=== PATIENT | male | born 1990 | race Caucasian/White ===

== ENCOUNTER 2019-12-19 08:51 | Emergency (ER) | payer OTHER, SELFPAY ==
[2019-12-19 09:36] VITALS: BP 113/64; PULSE 69; RESP 16; O2SAT 98; BMI 28.8
--- NOTE | 2019-12-19 09:50 | ED.GENADULT ---
HPI - General Adult General Chief complaint: Back Pain/Injury Stated complaint: back pain,inj work related Time Seen by Provider: 12/19/19 09:50 History of Present Illness HPI narrative: SO PATIENT HURT HIS BACK LIFTING AT WORK 1 WEEK AGO WAS SEEN HERE AND RETURN TO WORK TODAY AND EXPERIENCED SHARP PAIN IN HIS RIGHT LOW BACK THAT RADIATES TO HIS RIGHT CALF WITH NO NUMBNESS NO WEAKNESS NO PARESTHESIAS THIS IS WORK RELATED Related Data Previous Rx's Medication Instructions Recorded prednisone 40 mg PO DAILY #10 tab 12/19/19 Allergies Allergy/AdvReac Type Severity Reaction Status Date / Time No Known Allergies Allergy Unverified 12/05/19 19:36 [No Known Allergies*] Review of Systems Review of Systems: THERE IS NO NUMBNESS NO WEAKNESS NO PARESTHESIAS NO INCONTINENCE NO CHANGE OF BOWEL OR BLADDER PMFSH Past Medical History PMFSH Narrative: SO NO RELEVANT FAMILY OR SOCIAL HISTORY Social History Social History Advance Directives: No Advance Directives Information Provided: No Physical Exam Vital Signs and I&O and Narrative: Vital Signs and I&O: Vital Signs Pulse 69 12/19/19 09:36 Resp 16 12/19/19 09:36 BP 113/64 12/19/19 09:36 Pulse Ox 98 12/19/19 09:36 Intake & Output 12/18/19 12/19/19 12/19/19 18:59 06:59 18:59 Weight 86.183 kg Body Mass Index 28.8 Const: General: cooperative and no acute distress Neck: Other: THE NECK IS SUPPLE THERE IS NO TECH NECK TENDERNESS AND THERE IS A FULL RANGE OF MOTION Chest: Other: NO RESPIRATORY DISTRESS, CHEST NONTENDER AND LUNG SOUNDS ARE GI: Other: NO ABDOMINAL TENDERNESS, NO CVA TENDER Back/Spine/Pelvis: Other: THERE IS TENDERNESS TO THE RIGHT LOWER BACK, SKIN IS INTACT THERE IS NO REDNESS THERE IS NO FOCAL BONY TENDERNESS THERE IS NO CVA TENDERNESS Skin: Other: NO RASH, SKIN INTACT Neuro: Other: NO FOCAL WEAKNESS, SENSATION IS INTACT MOTORS INTACT GAIT IS NORMAL PATIENT CAN WALK ON TOES AND WALK ON HEELS Extrem: Other: EXTREMITIES ARE NORMAL WITH FULL RANGE OF MOTION IN ALL DAY Course Course Hospital Course: PATIENT REMAINS COMFORTABLE THROUGHOUT VISIT Discharge Plan Discharge Clinical Impression: Sciatica Patient Disposition: Home, Self-Care Additional Instructions: FOLLOW WITH [facility] IN 1-2 DAYS FOR WORK RELATED INJURY RETURN ANY CONCERNS Prescriptions: New prednisone 20 mg tablet 40 mg PO DAILY Qty: 10 RF: 0 Referrals: [facility] [Outside] - 2 days Stand Alone Forms: Work/School Release
== END 2019-12-19 10:45 | disposition home or self-care (01) ==
PROVIDERS: Emergency Provider Emergency Medicine
DX: Z04.2 Encounter for examination and observation following work accident (principal); M54.41 Lumbago with sciatica, right side
CPT/HCPCS: 99283; 99284

== ENCOUNTER → 2019-12-23 11:57 | Outpatient (BNVA) | payer OTHER, SELFPAY | PROVIDERS: Visit Provider Physician Assistant Medical | DX: Z76.89 Persons encountering health services in other specified circumstances (principal) ==

== ENCOUNTER → 2019-12-27 10:25 | Outpatient (BNVA) | payer OTHER, SELFPAY | PROVIDERS: Visit Provider Physician Assistant Medical | DX: S29.012D Strain of muscle and tendon of back wall of thorax, subsequent encounter (principal); S39.012D Strain of muscle, fascia and tendon of lower back, subsequent encounter; X58.XXXD Exposure to other specified factors, subsequent encounter ==

== ENCOUNTER → 2019-12-31 08:04 | Outpatient (BNVA) | payer OTHER, SELFPAY | PROVIDERS: Visit Provider Physician Assistant Medical | DX: S39.012A Strain of muscle, fascia and tendon of lower back, initial encounter (principal); S29.012A Strain of muscle and tendon of back wall of thorax, initial encounter; X58.XXXA Exposure to other specified factors, initial encounter | CPT/HCPCS: 72072; 72100; 99214 ==

== ENCOUNTER → 2020-01-07 08:01 | Outpatient (BNVA) | payer OTHER, SELFPAY | PROVIDERS: Visit Provider Physician Assistant Medical | DX: Z13.89 Encounter for screening for other disorder (principal) | CPT/HCPCS: 99213 ==

== ENCOUNTER → 2020-01-14 07:39 | Outpatient (BNVA) | payer OTHER, SELFPAY | PROVIDERS: Visit Provider Physician Assistant Medical | DX: S29.012A Strain of muscle and tendon of back wall of thorax, initial encounter (principal); S39.012A Strain of muscle, fascia and tendon of lower back, initial encounter; X50.0XXA Overexertion from strenuous movement or load, initial encounter; M47.814 Spondylosis without myelopathy or radiculopathy, thoracic region; R29.890 Loss of height | CPT/HCPCS: 99213 ==

== ENCOUNTER 2020-01-17 08:00 | Outpatient (RCR) | payer OTHER, SELFPAY ==
--- NOTE | 2020-02-06 14:34 | MHC.PT.DC ---
[facility] [place] Office [place] [facility] [place] Office [address] Omar Armstrong [address] [phone] F: [phone] F: [phone] F: [phone] F: [phone] Physical Therapy Discharge Report Diagnosis: R thoracic strain, lumbar strain Date of Surgery: Date of Evaluation: 12/27/19 Date of Discharge: 02/06/20 Treatments to Date: 4 Cancellations to Date: 0 No Shows to Date: 2 Discharge Status: Patient Elected to Stop Discharge Summary: Pt ATTENDED ONLY 4 VISITS OF PT, STATED AT LAST VISIT HE FELT NO CHANGE AND WAS TO RETURN TO [facility] FOR FOLLOW UP. HE HAS NOT RETURNED TO OUR OFFICE FOR SEVERAL WEEKS AND WE WILL D/C FROM OUR SERVICES AT THIS TIME Electronically signed by: WILLY CABRERA, PT, DPT Please sign and return to therapist. Thank you for your referral.
== END 2020-02-28 10:53 | disposition other institution (70) ==
LOC: HO.PT 08:00
PROVIDERS: Visit Provider Physician Assistant Medical
DX: S29.012D Strain of muscle and tendon of back wall of thorax, subsequent encounter (principal); S39.012D Strain of muscle, fascia and tendon of lower back, subsequent encounter; M62.830 Muscle spasm of back; X58.XXXD Exposure to other specified factors, subsequent encounter; Y99.0 Civilian activity done for income or pay
CPT/HCPCS: 97014; 97035; 97110; 97140; 97162; 97535; 99213

== ENCOUNTER 2020-01-17 17:58 | Outpatient (REF) | payer OTHER, SELFPAY ==
--- NOTE | 2020-01-17 | MR_ITS ---
EXAMINATION: MR THORACIC SPINE WITHOUT CONTRAST CLINICAL INFORMATION: Thoracic sprain. T7 vertebral body height loss. COMPARISON: Thoracic spine radiographs from 12/31/2019. TECHNIQUE: MRI of the thoracic spine was obtained using routine sequences without contrast. FINDINGS: Normal anatomic alignment. Moderate degenerative disc disease at T6-T7, T8-T9, T9-T10, and T10-T11 with mild endplate deformities. No suspicious marrow edema. The vertebral body heights are otherwise well-maintained. No significant abnormalities of the thoracic spinal cord. The conus medullaris terminates at the level of L1. No significant abnormalities of the paraspinal musculature. Limited evaluation of the intrathoracic structures without significant abnormalities. The descending thoracic aorta is of normal contour and caliber. AXIAL SPINAL LEVELS: Minimal posterior disc herniations at T2-T3, T6-T7, T8-T9, T9-T10, and T10-T11. Mild degenerative facet arthropathy of the lower thoracic spine. There is no spinal canal or neural foraminal stenoses. MR/MR thoracic spine wo con IMPRESSION: No demonstrated acute abnormalities of the thoracic spine. No suspicious marrow edema. Mild multilevel degenerative spinal arthropathy of the thoracic spine with multilevel minimal endplate deformities.
== END 2020-01-17 17:59 | disposition home or self-care (01) ==
LOC: HO.MRI 17:58
PROVIDERS: Visit Provider Internal Medicine
DX: S29.012A Strain of muscle and tendon of back wall of thorax, initial encounter (principal); R29.890 Loss of height
CPT/HCPCS: 72146

== ENCOUNTER → 2020-01-24 08:06 | Outpatient (BNVA) | payer OTHER, SELFPAY | PROVIDERS: Visit Provider Physician Assistant Medical | DX: S29.012D Strain of muscle and tendon of back wall of thorax, subsequent encounter (principal); S39.012D Strain of muscle, fascia and tendon of lower back, subsequent encounter; X58.XXXD Exposure to other specified factors, subsequent encounter; M51.24 Other intervertebral disc displacement, thoracic region | CPT/HCPCS: 99213 ==

== ENCOUNTER 2021-09-30 10:17 | Outpatient (REF) | payer OTHER, SELFPAY ==
[2021-09-30 11:19] LABS: COVID-19 Test Negative (Negative)
== END 2021-09-30 10:18 | disposition home or self-care (01) ==
LOC: HO.LAB 10:17
PROVIDERS: PCP Family Medicine; Visit Provider Internal Medicine
DX: Z20.822 Contact with and (suspected) exposure to COVID-19 (principal)
CPT/HCPCS: 87635; C9803

== ENCOUNTER 2022-12-04 11:36 | Emergency (ER) | payer OTHER, SELFPAY ==
--- NOTE | ~2022-12-04 | XR_ITS ---
EXAMINATION: XR LUMBOSACRAL SPINE CLINICAL INFORMATION: Low back pain COMPARISON: 12/31/2019 TECHNIQUE: Three views of the lumbosacral spine. FINDINGS: There are 5 lumbar type nonrib-bearing vertebra. Bones are normal anatomic alignment with no acute fracture or spondylolisthesis. Vertebral body heights and disc heights are preserved. Paravertebral soft tissues and bowel gas pattern unremarkable. No acute bony abnormalities seen in the visualized pelvis. XR/XR lumbar spine 2-3V IMPRESSION: No acute bony abnormality.
[2022-12-04 12:35] VITALS: BP 141/82; PULSE 81; RESP 16; TEMP 36.6; O2SAT 98; BMI 34.2
--- NOTE | 2022-12-04 12:37 | ED.GENADULT ---
[facility] - General Adult General Chief complaint: Back Pain/Injury Stated complaint: lower back pain Time Seen by Provider: 12/04/22 14:09 Source: patient and RN notes reviewed Mode of arrival: ambulatory Limitations: no limitations History of Present Illness HPI narrative: This is a 32-year-old male, with no significant past medical history, presenting to the emergency department with complaints of low back pain x3 weeks, worsening since yesterday. Patient reports that 3 weeks ago he was involved in a work related injury where he was lifting a tire in suddenly felt a shocking pain up and down his back. He was seen by a telemedicine physician and was given conservative measures to treat his pain. He states that his pain was improving until yesterday when his back pain gradually started to get worse without any new trauma or injury. He states that the pain does not radiate from his back. Patient denies any chest pain, shortness of breath. He states that his back pain worsens with movement, especially going from seated to standing positions. Denies any saddle anesthesia. Denies any urinary symptoms. No urinary or bowel incontinence or retention. Denies fevers or chills. No numbness tingling or weakness in lower extremities. No other complaints or concerns at this time. MD complaint: Low back pain Onset (ago): week(s) Location: back Radiation: non-radiation Quality: aching Pain Consistency: constant Relieving factors: none Exacerbating factors: none Associated symptoms: denies other symptoms Treatments prior to arrival: none Related Data Previous Rx's Medication Instructions Recorded prednisone 20 mg tablet 40 mg (2 x 20 mg) PO DAILY #10 tabs 12/19/19 cyclobenzaprine 10 mg tablet 10 mg PO TID PRN muscle spasm #14 12/04/22 tabs ibuprofen 800 mg tablet 800 mg PO Q8H PRN pain #30 tabs 12/04/22 lidocaine 5 % topical patch 1 patch topical DAILY #30 ea 12/04/22 (Lidoderm) Allergies Allergy/AdvReac Type Severity Reaction Status Date / Time No Known Allergies Allergy Verified 12/04/22 12:35 [No Known Allergies*] Review of Systems Review of Systems: Yes all other systems are reviewed and are negative Constitutional: Constitutional: Reports as per [facility] Social History Social History Alcohol intake: never Advance Directives: No Advance Directives Information Provided: Yes Physical Exam ED Vital Signs: Vital Signs - 24 hr 12/04/22 12:35 Temperature 98 F Pulse Rate 81 Respiratory Rate 16 Blood Pressure 141/82 H Pulse Oximetry 98 Oxygen Delivery Method Room Air BMI result Body Mass Index 34.2 Const General: cooperative, comfortable and no acute distress Orientation/consciousness: patient oriented x3 Limitations: no limitations HENMT Head: Yes normal to inspection, Yes normocephalic and Yes atraumatic Ears: hearing grossly normal bilaterally General nose exam: Normal external nose present Face and sinus: Yes normal facial exam Mouth: Normal oral and palatal mucosa present, oropharynx normal and moist mucous membranes Throat: Yes posterior oropharynx normal Eyes General: appearance normal, both eyes and all related structures Eyelids: Yes eyelids normal Conjunctivae: conjunctivae normal Sclerae: sclerae normal Pupils: Equal, round and reactive pupils present EOM: EOMs intact bilaterally Neck Neck: Yes normal visual inspection, Yes full ROM and Yes no lymphadenopathy Lymphatic: no lymphadenopathy noted Chest Chest palpation & inspection: normal inspection of the chest Resp Effort & Inspection: normal respiratory effort and able to speak in complete sentences Auscultation: clear to auscultation bilaterally, no crackles, no rales, no rhonchi and no wheezes Cardio Rate: regular rate Rhythm: regular rhythm Heart sounds: S1 normal heart sound present and S2 normal heart sound present GI Inspection: Yes normal to inspection Back/Spine/Pelvis Other: Tenderness palpation along the left lumbar and right lumbar paraspinous muscles. No midline spine tenderness. Pain worsening with palpation and with movement. Patellar reflexes are 2+ bilaterally. Distal sensation circulation intact Skin General skin exam: no rashes or lesions noted Trauma: no lacerations or abrasions Wounds: no wounds Neuro General: patient oriented x3 and moves all extremities Cranial nerves: Yes Equal, round and reactive pupils present Extrem General: Yes normal to inspection Right upper extremity: normal to inspection Left upper extremity: normal to inspection Right lower extremity: normal to inspection Left lower extremity: normal to inspection Course Course Course Narrative: RME: 32 Yold male presents to the ED for lumbar back pain after heavy lifting. Patient state no abdominal pain or complaints. Xray ordered Medical Decision Making Medical Decision Making MDM Narrative: 32-year-old male presenting to the emergency department with complaints of low back pain x3 weeks worsening since yesterday. On arrival, mildly hypertensive at 141/82, otherwise all vital signs within normal limits. Patient has tenderness palpation along the lumbar musculature consistent with muscle spasms, a lumbar spine x-ray was obtained without any bony abnormalities. Differential diagnoses includes lumbago versus musculoskeletal spasm / strain versus sciatica.No back pain red flags on history or physical. Presentation not consistent with malignancy (lack of history of malignancy, lack of B symptoms), fracture (no trauma, no bony tenderness to palpation), cauda equina syndrome (no bowel or urinary incontinence/retention, no saddle anesthesia, no distal weakness), pyelonephritis (afebrile, no CVAT, no urinary symptoms). X-rays were obtained without any acute findings. Discharged on muscle relaxants, lidocaine patches and ibuprofen. Given return precautions. Patient understands and agrees with plan. Patient stable for discharge. Differential Diagnosis Differential Diagnoses: The differential diagnosis associated with the presentation includes See above Radiology Impression Discussion of test interpretation with radiology: I have reviewed the radiologist's reading. Radiologist Impression: EXAMINATION: XR LUMBOSACRAL SPINE CLINICAL INFORMATION: Low back pain COMPARISON: 12/31/2019 TECHNIQUE: Three views of the lumbosacral spine. FINDINGS: There are 5 lumbar type nonrib-bearing vertebra. Bones are normal anatomic alignment with no acute fracture or spondylolisthesis. Vertebral body heights and disc heights are preserved. Paravertebral soft tissues and bowel gas pattern unremarkable. No acute bony abnormalities seen in the visualized pelvis. XR/XR lumbar spine 2-3V IMPRESSION: No acute bony abnormality. Dictated By: Lorenzo Gallegos MD Discharge Plan Discharge Clinical Impression: Strain of lumbar region, Lumbar paraspinal muscle spasm Patient Disposition: Home, Self-Care Instructions: Low Back Strain (ED), Muscle Spasm (ED), Back Pain (ED), Lower Back Exercises (ED), Core Strengthening Exercises (ED) Additional Instructions: Your x-rays did not show any bony abnormalities today. Your symptoms are likely due to a muscle spasm. Please take prescribed ibuprofen and Tylenol as directed as needed for pain. I am also prescribing Flexeril, this is a muscle relaxant, please be advised that this can cause drowsiness, do not drink alcohol or drive while taking this medication. If any new or worsening symptoms occur including but not limited to chest pain, shortness of breath, abdominal pain, urinary symptoms, numbness or tingling or weakness in her lower extremities, please return for re-evaluation. Follow-up with physical therapy as previously advised. Prescriptions: New cyclobenzaprine 10 mg tablet 10 mg PO TID PRN (Reason: muscle spasm) Qty: 14 0RF ibuprofen 800 mg tablet 800 mg PO Q8H PRN (Reason: pain) Qty: 30 0RF lidocaine [Lidoderm] 5 % adhesive patch,medicated 1 patch topical DAILY Qty: 30 0RF Rx Instructions: leave on most painful area for up to 12 hrs No Action prednisone 20 mg tablet 40 mg PO DAILY Qty: 10 0RF Rx Instructions: prednisone 40 mg once a day for 5 days Stand Alone Forms: Work/School Release Interventions: ED Discharge Assessment Last Done: 12/04/22 16:06 Discharge Date/Time: 12/04/22 16:07
== END 2022-12-04 16:07 | disposition home or self-care (01) ==
PROVIDERS: Emergency Provider Student in an Organized Health Care Education/Training Program
DX: S39.012A Strain of muscle, fascia and tendon of lower back, initial encounter (principal); M62.830 Muscle spasm of back; X50.3XXA Overexertion from repetitive movements, initial encounter; X50.9XXA Other and unspecified overexertion or strenuous movements or postures, initial encounter; Y93.9 Activity, unspecified; Y92.9 Unspecified place or not applicable; Y99.9 Unspecified external cause status
CPT/HCPCS: 72100; 99283

== ENCOUNTER 2023-01-21 08:18 | Emergency (ER) | payer OTHER, SELFPAY ==
[2023-01-21] VITALS (8 sets, daily range): BP systolic 101–124; BP diastolic 58–71; PULSE 61–78; RESP 15–18; TEMP 36.6–37; O2SAT 96–97; BMI 34.7
--- NOTE | 2023-01-21 08:59 | ECG_ITS ---
Test Reason : DIZZINESS Blood Pressure : / mmHG Vent. Rate : 070 BPM Atrial Rate : 070 BPM P-R Int : 148 ms QRS Dur : 096 ms QT Int : 384 ms P-R-T Axes : 024 -18 010 degrees QTc Int : 414 ms Normal sinus rhythm RSR' or QR pattern in V1 suggests right ventricular conduction delay Otherwise normal ECG No previous ECGs available Referred By: Nataly Mae Electronically Signed By:CHRISTOPHER GONZALEZ MD
[2023-01-21 09:44] LABS: MANUAL DIFF FLAG NO
[2023-01-21] MEDS: 0.9 % Sodium Chloride 1,000 ML 999 ML IV (09:59)
[2023-01-21 10:07] LABS: Basophils Percent Auto 0.2 % (0-2); Eosinophils Absolute Auto 0.2 X10*3/uL (0.0-0.4); Eosinophils Percent Auto 2.6 % (0-4); Hematocrit 41.5 % (42.0-52.0); Hemoglobin 14.3 g/dl (14.0-18.0); Imm Gran Abs Auto 0.02 X10*3/uL (0.00-0.03); Imm Gran Pct Auto 0.3 % (0.0-0.4); Lymphocytes Absolute Auto 1.5 X10*3/uL (1.2-4.9); Mean Corpuscular HGB Conc 34.5 g/dl (31.0-36.0); Mean Corpuscular Hemoglobin 31.2 pg (27.0-33.0); Mean Corpuscular Volume 90.6 fL (80.0-98.0); Mean Platelet Volume 9.1 fL (9.4-12.4); Monocytes Absolute Auto 0.6 X10*3/uL (0.1-1.2); Monocytes Percent Auto 9.1 % (2-11); Neutrophils Absolute Auto 3.8 x10*3/uL (2.0-8.3); Neutrophils Percent Auto 62.8 % (45-73); Platelet Count 253 X10*3/uL (160-400); Red Blood Count 4.58 X10*6/uL (4.60-5.80); Red Cell Distribution Width 12.2 % (11.0-16.0)
[2023-01-21 10:08] LABS: Alanine Aminotransferase 79 U/L (0-40); Albumin Level 4.3 g/dL (3.5-5.0); Alkaline Phosphatase 35 U/L (39-117); Anion Gap 11 (12-20); Aspartate Amino Transferase 36 U/L (5-37); Bilirubin Total 0.9 mg/dL (0.0-1.0); Blood Urea Nitrogen 13 mg/dL (9-16); Calcium 9.3 mg/dL (8.4-10.2); Carbon Dioxide 24 mmol/L (22-29); Chloride 106 mmol/L (96-108); Estimated Glomerular Filt Rate > 60; Glucose Random 106 mg/dL (60-115); Lipase 11 U/L (8-78); Potassium 3.8 mmol/L (3.3-5.1); Sodium 137 mmol/L (135-145); Total Protein 7.3 g/dL (6.5-8.0)
[2023-01-21 10:11] LABS: COVID-19 Test Negative (Negative); IDNOW Serial# 08D9AD1C
[2023-01-21 10:12] LABS: IDNOW Serial# BCCEAD1C; Influenza A Negative (Negative); Influenza B2 Negative (Negative)
[2023-01-21] MEDS: ondansetron HCL 4 MG/2 ML VIAL IVPUSH (10:16)
--- NOTE | 2023-01-21 10:17 | ED_ITS ---
HPI - General Adult General Chief complaint: Nausea/Vomiting/Diarrhea Stated complaint: dizzy spells 1xweek Time Seen by Provider: 01/21/23 09:00 Source: patient Mode of arrival: ambulatory Limitations: no limitations History of Present Illness HPI narrative: patient is a 32-year-old male who presents to the emergency department for evaluation of dizziness. He reports onset of symptoms to be 2 days ago. Intermittent disease episodes at times lasting a few hours, described as a severe room spinning sensation, at times is exacerbated upon position change, and sometimes with head movement. He reports associated fatigue, nausea, with bilious vomiting and nonbloody nor black diarrhea occurring a few times daily. Denies known sick contacts. Denies history of similar having occurred past. Denies fevers, chills, URI symptoms, headache, neck pain, neck stiffness, chest pain, shortness of breath difficulty breathing, numbness or tingling of the extremities, precipitating injury or fall. Currently is without dizziness. Related Data Previous Rx's Medication Instructions Recorded prednisone 20 mg tablet 40 mg (2 x 20 mg) PO DAILY #10 tabs 12/19/19 cyclobenzaprine 10 mg tablet 10 mg PO TID PRN muscle spasm #14 12/04/22 tabs ibuprofen 800 mg tablet 800 mg PO Q8H PRN pain #30 tabs 12/04/22 lidocaine 5 % topical patch 1 patch topical DAILY #30 ea 12/04/22 (Lidoderm) meclizine 25 mg tablet 25 mg PO BID PRN dizziness #14 tabs 01/21/23 Allergies Allergy/AdvReac Type Severity Reaction Status Date / Time No Known Allergies Allergy Verified 12/04/22 12:35 [No Known Allergies*] Review of Systems 2 Review of Systems: Yes all other systems are reviewed and are negative [facility] Past Medical History Attestation statement: The following information was validated with the patient. Source: old records reviewed Social History Social History Alcohol intake: never Smoked in Last 30 Days: No Use of substances other than those prescribed or required for medical reasons: No Advance Directives: No Physical Exam ED Vital Signs: Vital Signs - 24 hr 01/21/23 08:24 01/21/23 09:07 01/21/23 09:40 Temperature 98.6 F 98 F Pulse Rate 78 68 64 Respiratory Rate 18 15 Blood Pressure 119/64 116/62 111/62 Pulse Oximetry 96 97 Oxygen Delivery Method Room Air Room Air 01/21/23 09:41 01/21/23 09:42 01/21/23 10:21 Temperature Pulse Rate 70 77 61 Respiratory Rate 16 Blood Pressure 118/71 124/71 107/59 L Pulse Oximetry 97 Oxygen Delivery Method Room Air 01/21/23 12:00 01/21/23 13:02 Temperature 98 F 98.1 F Pulse Rate 72 78 Respiratory Rate 16 16 Blood Pressure 101/58 L 105/68 Pulse Oximetry 97 96 Oxygen Delivery Method Room Air Room Air BMI result Body Mass Index 34.7 Appearance: Alert.?Oriented to person, place and time. No acute distress.?Normal affect. Eyes: Pupils equal, round and reactive to light.? Mild horizontal gaze nystagmus. EOMI. ENT: Pharynx normal.?? Neck: Normal inspection.? Neck supple.?? No midline cervical spine tenderness, step-offs, deformities. CVS: Heart sounds normal. Normal heart rate and rhythm.? Pulses normal.?? Respiratory: No respiratory distress.? Lung sounds clear to auscultation bilaterally?? Abdomen: Soft and non-tender. Normoactive bowel sounds. Skin: Skin warm and dry.? Normal skin color.? Extremities: No lower extremity edema.? Neuro: Moves all extremities spontaneously. Sensation intact bilaterally. CN II- XII intact. No focal neuro deficits. Ambulates with normal steady gait. Course Reevaluation(s) Reevaluation #1: orthostatic vital signs are negative. EKG revealing normal sinus rhythm without acute ischemic abnormalities. COVID- 19 and influenza testing are negative. CBC is without leukocytosis or notable anemia. CMP overall unremarkable aside from mildly elevated AST 79, does not appear to have been present on prior labs. No persistent nausea or vomiting, no right upper quadrant tenderness upon palpation, lipase is within normal limits, No jaundice, do not suspect acute hepatobiliary etiology, further follow-up outpatient with PCP. Time: 10:31 Medications Administered Discontinued Medications Generic Name Dose Route Start Last Admin Trade Name Freq PRN Reason Stop Dose Admin Sodium Chloride 1,000 mls @ 999 mls/hr 01/21/23 09:45 01/21/23 11:03 Ns IV 01/21/23 10:45 Infused .Q1H1M RAMYA Infusion Meclizine HCl 25 mg 01/21/23 10:32 01/21/23 11:02 Meclizine Hcl 25 Mg Tablet PO 01/21/23 10:33 25 mg ONCE ONE Administration Ondansetron HCl 4 mg 01/21/23 09:31 01/21/23 10:16 Ondansetron Hcl 4 Mg/2 Ml Vial IVPUSH 01/21/23 09:32 4 mg ONCE ONE Administration Medical Decision Making Medical Decision Making [facility] Narrative: Patient is a 32-year-old male presents emergency department for evaluation of intermittent dizziness with associated N/V/ D. At the time my examination he is overall well-appearing, nontoxic, afebrile, and currently asymptomatic. Neuro exam with no abnormal findings, no focal neuro deficits, no spontaneous nystagmus, no ataxia, no diplopia, no dysarthria, no dysphagia, no dysphonia, no dysmetria. History suggestive of peripheral etiology given sudden onset with reported severe intensity, episodic nature, associated nausea and vomiting. It is not exacerbated upon exertion, has no associated palpitations to suggest arrhythmia, no head or neck pain inconsistent with CVA/SAH/ dissection, conscious alert and oriented times for unlikely toxic or metabolic etiology, no associated shortness of breath to suggest PE /anemia. plan to assess orthostatic vital signs, Will obtain CBC to evaluate for leukocytosis/ anemia, CMP and lipase to evaluate for abnormal electrolytes /abnormal renal function/ abnormal hepatic/biliary function, EKG and to evaluate for ischemia/ arrhythmia, patient received 1 L normal saline IV fluid pending workup, should dizziness return will trial meclizine, likely BPPV based on exam. At this time no indication for emergent head CT. Differential Diagnosis Differential Diagnoses: The differential diagnosis associated with the presentation includes ( as noted above) Admission/Observation Consideration of admission/observation: Escalation of care including admission/observation considered (considered admission for dizziness, see narrative above and course narrative for further detail) Lab Data MDM Lab Attestation statement: I reviewed the patient's lab results. (See course narrative for further detail) 01/21/23 09:34 01/21/23 09:34 Labs: Lab Results 01/21/23 Range/Units 09:34 WBC 6.0 (4.8-10.8) X10*3/uL RBC 4.58 L (4.60-5.80) X10*6/uL Hgb 14.3 (14.0-18.0) g/dl Hct 41.5 L (42.0-52.0) % MCV 90.6 (80.0-98.0) fL MCH 31.2 (27.0-33.0) pg MCHC 34.5 (31.0-36.0) g/dl RDW 12.2 (11.0-16.0) % Plt Count 253 (160-400) X10*3/uL MPV 9.1 L (9.4-12.4) fL Immature Gran % (Auto) 0.3 (0.0-0.4) % Neut % (Auto) 62.8 (45-73) % Lymph % (Auto) 25.0 (20-40) % [place] % (Auto) 9.1 (2-11) % Eos % (Auto) 2.6 (0-4) % Baso % (Auto) 0.2 (0-2) % Lymph # (Auto) 1.5 (1.2-4.9) X10*3/uL [place] # (Auto) 0.6 (0.1-1.2) X10*3/uL Eos # (Auto) 0.2 (0.0-0.4) X10*3/uL Baso # (Auto) 0.0 (0.0-0.2) X10*3/uL Abs Immat Gran (auto) 0.02 (0.00-0.03) X10*3/uL Absolute Neuts (auto) 3.8 (2.0-8.3) x10*3/uL Absolute Nucleated RBC 0.000 (0.0-0.012) X10*3/uL Nucleated RBC % (auto) 0.0 (0.0-0.2) /100WBC Sodium 137 (135-145) mmol/L Potassium 3.8 (3.3-5.1) mmol/L Chloride 106 (96-108) mmol/L Carbon Dioxide 24 (22-29) mmol/L Anion Gap 11 L (12-20) BUN 13 (9-16) mg/dL Creatinine 0.93 (0.5-1.4) mg/dL Estim Creat Clear Calc 133.0 Estimated GFR > 60 Random Glucose 106 (60-115) mg/dL Calcium 9.3 (8.4-10.2) mg/dL Magnesium 2.0 (1.6-2.6) mg/dL Total Bilirubin 0.9 (0.0-1.0) mg/dL AST 36 (5-37) U/L ALT 79 H (0-40) U/L Alkaline Phosphatase 35 L (39-117) U/L Total Protein 7.3 (6.5-8.0) g/dL Albumin 4.3 (3.5-5.0) g/dL Lipase 11 (8-78) U/L COVID-19 ([place]) Negative (Negative) COVID-19 Clin Com See Note Influenza Type A ([place]) Negative (Negative) Influenza Type B ([place]) Negative (Negative) Influenza A & B Note See Note Independent Interpretation I performed an independent interpretation of an: EKG Interpretation: Rate: 70 Rhythm:? normal sinus rhythm [place]:? normal Normal P waves.? Normal [place].?? Normal QRS complex.?? ST T wave :?? no ST elevation, no ST depression, qTC: 414 prior studies:? none available for review The study has been interpreted contemporaneously by me. External Record Review External record reviewed: Outpatient record Discharge Plan Discharge Clinical Impression: Benign paroxysmal positional vertigo Patient Disposition: Home, Self-Care Instructions: Vertigo (ED) Prescriptions: New meclizine 25 mg tablet 25 mg PO BID PRN (Reason: dizziness) Qty: 14 0RF No Action prednisone 20 mg tablet 40 mg PO DAILY Qty: 10 0RF Rx Instructions: prednisone 40 mg once a day for 5 days cyclobenzaprine 10 mg tablet 10 mg PO TID PRN (Reason: muscle spasm) Qty: 14 0RF ibuprofen 800 mg tablet 800 mg PO Q8H PRN (Reason: pain) Qty: 30 0RF lidocaine [Lidoderm] 5 % adhesive patch,medicated 1 patch topical DAILY Qty: 30 0RF Rx Instructions: leave on most painful area for up to 12 hrs Referrals: Physician,None [Primary Care Provider] - Interventions: ED Discharge Assessment Last Done: 01/21/23 13:05 Discharge Date/Time: 01/21/23 13:20
--- NOTE | 2023-01-21 10:17 | PC.NURSE ---
aox4. reports dizziness w orthos- none at rest now. nausea, no vom./diarr. at this time. piv cdi. no distress. talks well
[2023-01-21] MEDS: Meclizine HCl 25 MG TABLET PO (11:02)
--- NOTE | 2023-01-21 11:03 | PC.NURSE ---
reports improved nausea. no dizziness at rest. no distress
--- NOTE | 2023-01-21 11:08 | PC.NURSE ---
eating crackers/po fluids. tolerating well. no vomiting at this time
--- NOTE | 2023-01-21 13:06 | PC.NURSE ---
rports dizziness improved. walks w/o diff. aox4. calm, coop. no distrss. piv out
== END 2023-01-21 13:20 | disposition home or self-care (01) ==
PROVIDERS: Nurse Practitioner Family; Emergency Provider Emergency Medicine
DX: H81.10 Benign paroxysmal vertigo, unspecified ear (principal); Z11.52 Encounter for screening for COVID-19
CPT/HCPCS: 80053; 83690; 83735; 85025; 87502; 87635; 93005; 96361; 96374; 99284; 99285; J2405